=== PATIENT | male | born 1960 | race African-American/Black ===

== ENCOUNTER → 2020-01-12 | Emergency (ER) | payer MEDICAID, OTHER ==
[~2020-01-12] VITALS: Ht 172.7 cm; Wt 79.4 kg
[~2020-01-12] MED LIST: IOHEXOL 300 MG/ML 100ML BOTTLE IJ ONE
[2020-01-12 11:11] LABS: Basophils # (auto) 0.1 10 ^3/uL (0-0.2); Eosinophils # (auto) 0.1 10 ^3/uL (0-0.8); Eosinophils % (auto) 0.8 % (0.0-7.0); Hematocrit 43.1 % (41.0-53.0); Hemoglobin 14.2 g/dL (13.5-17.5); Lymphocytes # (auto) 1.3 10 ^3/uL (0.4-5.4); Lymphocytes % (auto) 16.9 % (10.0-50.0); Mean Corpuscular Hemoglobin 31.4 pg (28.0-32.0); Mean Corpuscular Volume 95.1 fL (80.0-100.0); Monocytes % (auto) 13.2 % (0.0-12.0); Neutrophils # (auto) 5.3 10 ^3/uL (1.6-8.6); Neutrophils % (auto) 68.1 % (37.0-80.0); Platelet Count (auto) 146 10^3/uL (140-450); Red Blood Cells 4.53 10^6/uL (4.5-5.90); Red Cell Distribution Width 14.1 % (11.8-14.3); White Blood Cell 7.7 10^3/uL (4.4-10.8)
[2020-01-12 11:25] LABS: Albumin 3.7 g/dL (3.4-5.0); Calcium 8.7 mg/dL (8.5-10.1); Potassium 3.8 mmol/L (3.5-5.1)
[2020-01-12 11:28] LABS: BUN/Creatinine Ratio 11.9; Bilirubin, Total 1.5 mg/dL (0.2-1.0); Total Protein 7.8 g/dL (6.4-8.2)
[2020-01-12 14:09] VITALS: BP 124/75
== END | disposition home or self-care (01) ==
LOC: ER 10:06
DX: R59.1 Generalized enlarged lymph nodes (principal); M54.2 Cervicalgia
CPT/HCPCS: 36415; 70491; 71260; 80053; 85025; 99285; Q9967

== ENCOUNTER 2024-10-04 07:45 | Inpatient (IN) | payer MEDICAID ==
[~2024-10-04] VITALS: Ht 172.7 cm; Wt 95.0 kg
[2024-10-04] VITALS (8 sets, daily range): BP systolic 113–146; BP diastolic 67–87; PULSE 64–78; RESP 12–17; TEMP 98.4–98.7; O2SAT 98–99
[~2024-10-04 07:45] MED LIST changes: +ATOR20TA50 PO; -IOHEXOL 300 MG/ML 100ML BOTTLE IJ ONE
[2024-10-04] MEDS ORDERED: KETAMINE 50mg/ML 1ml syringe ONE (08:40)
[2024-10-04] MEDS ORDERED: MEPERIDINE HCL (25 MG/ML) 1ML VIAL ONE (08:40)
[2024-10-04] MEDS ORDERED: PROPOFOL 10 MG/ML 20 ML IV ONE (08:40)
[2024-10-04] MEDS ORDERED: BUPIVACAINE/DEXTROSE MPF 0.75% 2 ML AMP IT ONE (08:40)
[2024-10-04] MEDS ORDERED: MIDAZOLAM HCL 2MG/2ML 2ml VIAL (1mg/ml) ONE (08:40)
[2024-10-04] MEDS ORDERED: LIDOCAINE 1% INJ PF 5ML AMP ONE (08:40)
[2024-10-04] MEDS ORDERED: fentaNYL CITRATE 100 MCG/2 ML VL ONE (08:40)
[2024-10-04] MEDS ORDERED: SODIUM CHLORIDE LOCK 10 ML ONE (08:40)
[2024-10-04] MEDS: TRANEXAMIC ACID 20 ML ONE (09:31)
[2024-10-04] MEDS: ROPIVACAINE 0.5% (5MG/ML) 20ML AMPULE IJ ONE (09:31)
[2024-10-04] MEDS: VANCOMYCIN HCL 1000 MG VL ONE (09:32)
[2024-10-04] MEDS: TETRACAINE 1% INJ 2 ML VIAL IJ ONE (09:35)
[2024-10-04] MEDS: ATORVASTATIN 20 MG TAB PO SCH (10:00)
[2024-10-04] MEDS: ceFAZolin 2 GM/D5W100ml 100 ML IV ONE (10:14)
[2024-10-04] MEDS: CEFEPIME 1GM/ 50ML 50 ML IV ONE (10:33)
[2024-10-04] MEDS ORDERED: MORPHINE SULF PF 5 MG/10 ML VIAL ONE (11:01)
[2024-10-04] MEDS: KETOROLAC TROMETH 30 MG/ML 1ML VIAL ONE ×2 (11:01→11:37)
[2024-10-04] MEDS ORDERED: oxyCODONE HCL 5MG TAB PO PRN (11:30)
[2024-10-04] MEDS: MORPHINE SULF PF 5 MG/10 ML VIAL ONE (11:37)
[2024-10-04] MEDS: BUPIVACAINE 0.25% INJ 50ML VIAL ONE (11:37)
--- NOTE | 2024-10-04 12:07 | DVH ---
CLINICAL INDICATION: TOTAL HIP ARTHROPLASTY TECHNIQUE: 1 radiographic views of the pelvis were obtained. Comparison: None FINDINGS/IMPRESSION: Status post left hip arthroplasty.
--- NOTE | 2024-10-04 12:18 | DVHOP2 ---
Operative Report - 2 Report Details Date: 10/04/24 Preop Diagnosis: Left hip degenerative arthritis Postop Diagnosis: Left hip degenerative arthritis Surgeon: Collin Miramontes MD [employer] Professor: Dianna JEAN Anesthesiologist: Trent Anesthesia: General Drains: Ashli closed wound suction Implant: DonJoy origin stem size 13 standard offset, 0 neck length, 36 ceramic head, flat polyethylene liner, 52 acetabular shell Consent: The patient was informed of the risks and benefits of the procedure. These include but are not limited to complications of anesthesia, postoperative infection, incomplete relief of symptoms, recurrence of symptoms, damage to blood vessels, nerves and tendons, deep venous thrombosis, pulmonary embolism and possible need for repeat surgery in the future. Complications: None Estimated Blood Loss: 200 cc Fluids: See anesthesia record Findings: Osteophytes at the femoral head and acetabulum, denuded cartilage with eburnated bone, limited range of motion hip Indications for Surgery: Left hip degenerative arthritis with severe pain and functional impairment despite nonoperative management Name of Procedure Performed Left total hip arthroplasty Procedure Details Procedure Details: The patient was brought to the operating room and given spinal anesthetic which did not take so he was given general anesthetic. The patient was positioned lateral decubitus with the operative side up, stabilized with hip positioners. Axillary roll applied and lower extremities well-padded. Preop patient received IV Ancef, cefepime and IV tranexamic acid. Surgical timeout was performed verifying patient, laterality and procedure. The hip and lower extremity were prepped and draped in sterile fashion. Incision was made over the greater trochanter. Subcutaneous dissection and hemostasis were performed with Bovie and aqua mantis. I identified the fascia which was incised with Bovie and Charnley retractor inserted. I identified the gluteus medius that was split at the junction of its anterior and middle thirds with Bovie then incised off the anterior greater trochanter. I incised the anterior gluteus minimus which was elevated off the capsule. I elevated the reflected head of the rectus. I then performed anterior capsulectomy with Bovie. I extended capsular incision posterior medially and superior laterally. The head was dislocated. Femoral neck cut was made with saw and head removed. Head diameter was calipered on the back table. I adjusted retractors to expose the acetabulum. I circumferentially removed labral tissue with Bovie. I removed foveal tissue with Bovie, curette and rongeur. I then began reaming sequentially paying attention to inclination and version as I went. I trialed which was stable so acetabular implant was brought into the field and tapped into the acetabulum with good fixation achieved. I then brought up the flat liner which was spun to make sure there was no soft tissue entrapment then tapped in and stability verified. I then brought my attention to the proximal femur. The leg was placed in the sterile bag anteriorly. I cleaned up soft tissue at the greater trochanter shoulder with Bovie. I then used a rongeur to clip the lateral neck. I then used a box osteotome, canal finder and lateralizing rasp. I sequentially broached to size 13. I revised the femoral neck cut with calcar planer. I trialed with a [0] neck length and [36] head which was stable. Intraoperative AP pelvis x-ray was obtained to verify length, offset and implant size. The hip was dislocated. Neck and head trial removed. Broach was removed. I tapped in the femoral implant with good fixation achieved. I cleaned and dried the Auguste taper and tapped on the ceramic head. The hip was again reduced and tested for stability which was good. I irrigated with xperience. [I injected soft tissue with local anesthetic which consisted of 40 cc of 0.25% Marcaine with epinephrine, 30 mg Toradol, 10 mL with Duramorph consisting of 5 mg.] I placed a 2 grams of vancomycin in the deep and superficial wound. I repaired the minimus and medius to the anterior greater trochanter with #[5] FiberWire in running fashion . I oversewed the repair with 0 Vicryl. I repaired the fascia with #1 Ethibond interrupted [id number]. Deep subcutaneous tissue was closed with 0 Vicryl. Superficial subcutaneous tissue was closed with 2-0 Vicryl. The skin was closed with octavio. I then applied the Ashli closed wound suction. Patient tolerated the procedure well and was brought to the recovery room in stable condition. Condition Stable Disposition Still a Patient COLLIN MIRAMONTES MD Oct 04, 2024 12:18
[2024-10-04] MEDS ORDERED: ONDANSETRON HCL 4 MG/2 ML VIAL IV PRN (12:30)
[2024-10-04] MEDS ORDERED: HYDROmorphone HCL 2 MG/ML VL/or syr IV PRN ×2 (13:00)
[2024-10-04] MEDS ORDERED: fentaNYL CITRATE 100 MCG/2 ML VL IV PRN (13:00)
[2024-10-04] MEDS: METOCLOPRAMIDE HCL 5MG/ml INJ 2ml VIAL IV ONE (13:00)
[2024-10-04] MEDS ORDERED: NALOXONE HCL 0.4 MG/ML VIAL IV PRN (13:00)
[2024-10-04] MEDS ORDERED: diphenhdrAMINE HCL 50 MG/1 ML VL IV PRN (13:00)
[2024-10-04] MEDS ORDERED: MORPHINE SULFATE INJ 2 MG/ml SYRG IV PRN (13:00)
[2024-10-04] MEDS: HYDROmorphone HCL 2 MG/ML VL/or syr ONE (13:05)
[2024-10-04] MEDS: HYDROmorphone HCL 2 MG/ML VL/or syr IV PRN (13:07)
--- NOTE | 2024-10-04 13:07 | DVH ---
CLINICAL INDICATION: postop TECHNIQUE: 1 radiographic views of the pelvis were obtained. Comparison: None FINDINGS/IMPRESSION: Postsurgical changes from left hip arthroplasty. Severe osteoarthrosis of the right femoroacetabular joint.
[2024-10-04] MEDS: ACETAMINOPHEN IV 100 ML IV ONE (13:21)
[2024-10-04] MEDS: ACETAMINOPHEN IV 1000 MG/100ML (10MG/ML) IV ONE (13:25)
[2024-10-04] MEDS ORDERED: LIDOCAINE W/ EPINEPHRINE 2% INJ 20ML VIAL ONE (13:58)
[2024-10-04] MEDS: KETOROLAC TROMETH 30 MG/ML 1ML VIAL IV ONE (14:40)
[2024-10-04] MEDS: SODIUM CHLORIDE 0.9% 1,000 ML IV SCH (17:48)
[2024-10-04] MEDS: ceFAZolin 2 GM/D5W50ml 50 ML IV SCH (17:49)
[2024-10-04] MEDS: ACETAMINOPHEN 325 MG TAB PO SCH (18:00)
[2024-10-04] MEDS: KETOROLAC TROMETH 30 MG/ML 1ML VIAL IV SCH (18:00)
[2024-10-04] MEDS: PREGABALIN 25 MG CAP PO SCH (22:08)
[2024-10-05] VITALS (20 sets, daily range): BP systolic 111–128; BP diastolic 62–73; PULSE 68–98; RESP 14–20; TEMP 97.9–99.5; O2SAT 93–99
[2024-10-05 06:43] LABS: Basophils # (auto) 0 10 ^3/uL (0-0.2); Basophils % (auto) 0.1 % (0.0-2.0); Eosinophils # (auto) 0 10 ^3/uL (0-0.8); Eosinophils % (auto) 0.1 % (0.0-7.0); Hematocrit 29.1 % (41.0-53.0); Hemoglobin 9.9 g/dL (13.5-17.5); Lymphocytes # (auto) 1.8 10 ^3/uL (0.4-5.4); Lymphocytes % (auto) 26.3 % (10.0-50.0); Mean Corpuscular Hemoglobin 33.9 pg (28.0-32.0); Mean Corpuscular Volume 99.9 fL (80.0-100.0); Monocytes # (auto) 0.6 10 ^3/uL (0-1.3); Monocytes % (auto) 8.8 % (0.0-12.0); Neutrophils # (auto) 4.6 10 ^3/uL (1.6-8.6); Neutrophils % (auto) 64.7 % (37.0-80.0); Platelet Count (auto) 122 10^3/uL (140-450); Red Blood Cells 2.91 10^6/uL (4.5-5.90); Red Cell Distribution Width 13.6 % (11.8-14.3)
[2024-10-05 06:59] LABS: Anion Gap 7 (5-15); Calcium 8.8 mg/dL (8.7-10.4); Carbon Dioxide 24 mmol/L (20-31); Chloride 107 mmol/L (98-107); Potassium 3.9 mmol/L (3.5-5.1); Sodium 138 mmol/L (136-145)
[2024-10-05 07:05] LABS: Blood Urea Nitrogen 16 mg/dL (9-23)
[2024-10-05 07:07] LABS: Glucose 151 mg/dL (74-106)
[2024-10-05] MEDS: APIXABAN 2.5 MG TAB PO SCH (09:55)
--- NOTE | 2024-10-05 12:51 | DVHDS2 ---
Discharge Summary Date of Admission Oct 04, 2024 at 11:28 Date of Discharge: Oct 05, 2024 Labs/Diagnostic Data: Laboratory Results Test 10/05/24 06:02 White Blood Count 7.0 10^3/uL (4.4-10.8) Red Blood Count 2.91 10^6/uL (4.5-5.90) Hemoglobin 9.9 g/dL (13.5-17.5) Hematocrit 29.1 % (41.0-53.0) Mean Corpuscular Volume 99.9 fL (80.0-100.0) Mean Corpuscular Hemoglobin 33.9 pg (28.0-32.0) Mean Corpuscular Hemoglobin Concent 34.0 g/dL (32.0-36.0) Red Cell Distribution Width 13.6 % (11.8-14.3) Platelet Count 122 10^3/uL (140-450) Mean Platelet Volume 9.4 fL (6.9-10.8) Neutrophils (%) (Auto) 64.7 % (37.0-80.0) Lymphocytes (%) (Auto) 26.3 % (10.0-50.0) Monocytes (%) (Auto) 8.8 % (0.0-12.0) Eosinophils (%) (Auto) 0.1 % (0.0-7.0) Basophils (%) (Auto) 0.1 % (0.0-2.0) Neutrophils # (Auto) 4.6 10 ^3/uL (1.6-8.6) Lymphocytes # (Auto) 1.8 10 ^3/uL (0.4-5.4) Monocytes # (Auto) 0.6 10 ^3/uL (0-1.3) Eosinophils # (Auto) 0 10 ^3/uL (0-0.8) Basophils # (Auto) 0 10 ^3/uL (0-0.2) Nucleated Red Blood Cells 0.0 % Sodium Level 138 mmol/L (136-145) Potassium Level 3.9 mmol/L (3.5-5.1) Chloride Level 107 mmol/L (98-107) Carbon Dioxide Level 24 mmol/L (20-31) Anion Gap 7 (5-15) Blood Urea Nitrogen 16 mg/dL (9-23) Creatinine 0.94 mg/dL (0.700-1.30) Glomerular Filtration Rate Calc 91 mL/min (>90) BUN/Creatinine Ratio 17.0 (10.0-20.0) Serum Glucose 151 mg/dL (74-106) Calcium Level 8.8 mg/dL (8.7-10.4) Other Laboratory Tests 10/05/24 06:02 Brief Hx & Hospital Course: The patient was brought to the hospital yesterday to undergo a left total hip arthroplasty, he tolerated the procedure well without complications and was kept overnight for postoperative observation. He has remained medically stable throughout his stay and denied any overnight events and reports some postoperative hip pain that is being well managed with the help of pain medication. Patient reports that he was also able to get up and walk with the help of physical therapy and his walker and was able to get around the nurses station and back to his bed with some postoperative hip pain. Patient is otherwise feeling well denying any other complaint or concern during my evaluation and would like to go home. Condition at Discharge: Stable Final Diagnosis/Problems List Left hip degenerative arthritis Discharge Disposition: Home Discharge Instruct/Medications Diet: Regular Activity: See Comment Activity comment: Patient to remain weight-bearing as tolerated with the assistance of a walker Follow Up/Referral: I instructed the patient to follow up with our office in 10-14 days for his 1st postoperative evaluation Medications: Rx sent via our outpatient EMR system Discharge Statement: "Patient was advised to return to the ER or call 911 if any headaches, dizziness, shortness of breath, chest pain, abdominal pain, bleeding, fevers, or worsening of medical condition. Patient was counseled about treatment plan, medications, possible side effects, patientverbalized understanding. All questions were answered to the best of my ability. This discharge took greater then 30 minutes in planning, reviewing documentation, counseling the patient, and discussing with other team members." ASSESSMENT ASSESSMENT Assessment Left hip degenerative arthritis CESAR BARTH Oct 05, 2024 12:51
--- NOTE | 2024-10-05 12:53 | DVHPN2 ---
Progress Note - Dictate Date Seen: Oct 05, 2024 Medical Necessity Reason Pt with a Central, PICC or Fol: No Subjective Patient was lying comfortably in bed during my evaluation and reports some postoperative hip pain that is being well managed with the help of pain medication. Patient reports that he was also able to get up and walk with the help of physical therapy and his walker and was able to get down the vickers to the nurse's station and back to his bed with some pain. Patient is otherwise feeling well denying any other complaint or concern during my evaluation and would like to go home. vital signs Vital Sign Date Time Temp Pulse Resp B/P (MAP) Pulse Ox O2 Delivery O2 Flow Rate FiO2 10/05/24 10:52 72 18 95 10/05/24 09:00 98.8 114/65 (81) 98.8 10/04/24 20:00 Nasal Cannula* 2 28 Total Intake and Output 10/04/24 10/04/24 10/05/24 15:00 23:00 07:00 Intake Total 250 ml 50 ml 350 ml Output Total 725 ml Balance 250 ml 50 ml -375 ml medications Current Medications Medications Dose Ordered Sig/Dm Route Start Time Stop Time Status Last Admin Dose Admin Atorvastatin Calcium 20 mg DAILY PO 10/04/24 10:00 10/05/24 09:55 20 MG Pregabalin 50 mg BID PO 10/04/24 22:00 10/05/24 09:55 50 MG Apixaban 2.5 mg BID PO 10/05/24 10:00 11/09/24 09:59 10/05/24 09:55 2.5 MG Sodium Chloride 1,000 ml @ 125 mls/hr Q8H IV 10/04/24 11:30 10/05/24 05:09 125 MLS/HR Acetaminophen 650 mg Q6HP PO 10/04/24 18:00 10/05/24 06:52 650 MG Ketorolac Tromethamine 15 mg Q6HR IV 10/04/24 18:00 10/09/24 17:59 10/05/24 06:52 15 MG Ondansetron HCl 4 mg Q4HP PRN IV 10/04/24 12:30 Oxycodone HCl 5 mg Q4HP PRN PO 10/04/24 11:30 Oxycodone HCl 10 mg Q4HP PRN PO 10/04/24 11:30 Diphenhydramine HCl 25 mg Q4HP PRN IV 10/04/24 13:00 objective A&O x4 in no acute distress Hip range of motion grossly limited with pain on movement Ashli dressing clean, dry, intact, and maintaining suction No distal edema or calf tenderness to palpation Neurovascularly intact with cap refill less than 2 seconds laboratory and microbiology Laboratory Tests 10/05/24 06:02 Test 10/05/24 06:02 Range/Units Serum Glucose 151 H 74-106 mg/dL Assessment/Plan Patient to be discharged home and advised to remain weight-bearing as tolerated with the assistance of a walker. I also instructed the patient to maintain his dressings clean, dry, intact, and maintaining suction and to call our office if he has any questions or concerns. Patient was instructed to follow up with our office in 10-14 days for his 1st postoperative evaluation. Rx sent via our outpatient EMR system. He understood and agreed. Plan discussed with: Patient CESAR BARTH Oct 05, 2024 12:53
[2024-10-05] MEDS: oxyCODONE HCL 5MG TAB PO PRN (19:15)
== END 2024-10-05 19:00 | disposition home or self-care (01) | DRG 324 ==
LOC: SUR 07:45 → OVERFLOW 11:28 → TELE 12:39 → TELE-EAST 15:15
PROVIDERS: ADMIT Orthopaedic Surgery; ATTEND Orthopaedic Surgery
PROC: 0SRB04Z Replacement of Left Hip Joint with Ceramic on Polyethylene Synthetic Substitute, Open Approach (ICD-10-PCS; principal; 2024-10-04 10:14)
DX: M16.12 Unilateral primary osteoarthritis, left hip (principal); Z79.899 Other long term (current) drug therapy
CPT/HCPCS: 36415; 72170; 73501; 80048; 85025; 86850; 86900; 86901; 97110; 97116; 97163; 97530; G0378; J0131; J1885; J2250; J2704; J3490

== ENCOUNTER 2025-05-30 06:04 | Inpatient (IN) | payer MEDICAID ==
[2025-05-28 10:51] LABS: Urine Protein, UAD Negative (Negative)
[2025-05-28 10:59] LABS: INR 1.03 (0.9-1.15); Partial Thromboplastin Time 28.5 SEC (24.5-34.5); Prothrombin Time 10.9 sec (9.3-11.8)
[2025-05-28 11:16] LABS: Alanine Aminotransferase 15 U/L (7-40); Albumin 4.5 g/dL (3.2-4.8); Alkaline Phosphatase 64 U/L (46-116); Anion Gap 9 (5-15); BUN/Creatinine Ratio 9.3 (10.0-20.0); Calcium 9.1 mg/dL (8.7-10.4); Carbon Dioxide 26 mmol/L (20-31); Chloride 105 mmol/L (98-107); Glucose 93 mg/dL (74-106); Potassium 4.3 mmol/L (3.5-5.1); Sodium 140 mmol/L (136-145); Total Protein 7.6 g/dL (5.7-8.2)
[2025-05-28 11:17] LABS: Bilirubin, Total 1.1 mg/dL (0.2-1.0)
[2025-05-28 11:19] LABS: Blood Urea Nitrogen 9 mg/dL (9-23)
[2025-05-28 11:21] LABS: Hemoglobin 13.6 g/dL (13.5-17.5); Nucleated Red Blood Cells % 0.1 %
[2025-05-28 11:23] LABS: Hematocrit 39.0 % (41.0-53.0); Mean Corpuscular Hemoglobin 35.0 pg (28.0-32.0); Mean Corpuscular Volume 100.5 fL (80.0-100.0)
[2025-05-30] VITALS (10 sets, daily range): BP systolic 118–138; BP diastolic 68–92; PULSE 75–102; RESP 12–20; TEMP 97.4–97.8; O2SAT 93–99
[~2025-05-30] VITALS: Ht 172.7 cm; Wt 92.9 kg
[~2025-05-30 06:04] MED LIST changes: +CHOL200064 PO
[2025-05-30] MEDS: ROPIVACAINE 0.5% (5MG/ML) 20ML AMPULE IJ ONE (06:46)
[2025-05-30] MEDS ORDERED: HYDROmorphone HCL 2 MG/ML VL/or syr IV PRN (07:15)
[2025-05-30] MEDS ORDERED: ONDANSETRON HCL 4 MG/2 ML VIAL IV PRN (07:15)
[2025-05-30] MEDS ORDERED: METOCLOPRAMIDE HCL 5MG/ml INJ 2ml VIAL ONE (07:17)
[2025-05-30] MEDS ORDERED: fentaNYL CITRATE 100 MCG/2 ML VL ONE (07:17)
[2025-05-30] MEDS ORDERED: ONDANSETRON HCL 4 MG/2 ML VIAL ONE (07:17)
[2025-05-30] MEDS ORDERED: ROCURONIUM 10MG/ML 10ML VIAL IV ONE (07:17)
[2025-05-30] MEDS ORDERED: PROPOFOL 10 MG/ML 20 ML IV ONE (07:17)
[2025-05-30] MEDS ORDERED: LIDOCAINE 2% (LOCAL ANESTH.) PF 5ml SDV ONE (07:17)
[2025-05-30] MEDS ORDERED: MIDAZOLAM HCL 2MG/2ML 2ml VIAL (1mg/ml) ONE (07:17)
[2025-05-30] MEDS ORDERED: MORPHINE SULF PF 5 MG/10 ML VIAL ONE (07:19)
[2025-05-30] MEDS ORDERED: KETOROLAC TROMETH 30 MG/ML 1ML VIAL ONE (07:19)
[2025-05-30] MEDS: ceFAZolin 2 GM/D5W50ml 50 ML IV ONE (07:25)
[2025-05-30] MEDS: CEFEPIME 1GM/50ML 50 ML IV ONE (07:30)
[2025-05-30] MEDS: TRANEXAMIC ACID 20 ML ONE (07:35)
[2025-05-30] MEDS ORDERED: HYDROmorphone HCL 2 MG/ML VL/or syr ONE (07:50)
[2025-05-30] MEDS ORDERED: SODIUM CHLORIDE LOCK 10 ML ONE (07:51)
[2025-05-30] MEDS ORDERED: hydrALAZINE HCL 20 MG/ML VL ONE (07:51)
[2025-05-30] MEDS: VANCOMYCIN HCL 1000 MG VL ONE (08:37)
[2025-05-30] MEDS ORDERED: PHENYLEPHRINE HCL 10 MG/ML VL ONE (08:46)
[2025-05-30] MEDS ORDERED: LIDOCAINE W/ EPINEPHRINE 1% 20ML VIAL ONE (08:46)
[2025-05-30] MEDS ORDERED: SUGAMMADEX 200mg/2ml Vial (100MG/ML) IV ONE (08:53)
--- NOTE | 2025-05-30 09:00 | DVH ---
CLINICAL INDICATION: INTRA OP TECHNIQUE: XY R HIP 1V XRAY Comparison: XR HIP RIGHT 2-3 VIEW on DOS: 02/01/25, XY PELVIS AP on DOS: 10/04/24, XY L HIP 1V XRAY on DOS: 10/04/24 FINDINGS/IMPRESSION: : Intraoperative right hip arthroplasty
--- NOTE | 2025-05-30 09:18 | DVHOP2 ---
Operative Report - 2 Report Details Date: 05/30/25 Preop Diagnosis: Right hip degenerative arthritis Postop Diagnosis: Right hip degenerative arthritis Surgeon: Collin Miramontes MD [employer] Operator: Dianna JEAN Anesthesiologist: Rober Anesthesia: General, Regional Drains: Ashli closed wound suction Implant: Jonah floresous stem size six, plus four neck length, 36 ceramic head, 52 G7 Maren cup, flat polyethylene liner Consent: The patient was informed of the risks and benefits of the procedure. These include but are not limited to complications of anesthesia, postoperative infection, incomplete relief of symptoms, recurrence of symptoms, damage to blood vessels, nerves and tendons, deep venous thrombosis, pulmonary embolism and possible need for repeat surgery in the future. Complications: None Estimated Blood Loss: 150 cc Fluids: See anesthesia record Findings: Denuded cartilage with eburnated bone, osteophytes Indications for Surgery: Right hip degenerative arthritis with severe pain and functional impairment despite nonoperative management Name of Procedure Performed Right total hip arthroplasty Procedure Details Procedure Details: The patient was brought to the operating room and given general anesthetic. The patient was positioned lateral decubitus with the operative side up, stabilized with hip positioners. Axillary roll applied and lower extremities well-padded. Preop patient received IV Ancef, cefepime and IV tranexamic acid. Surgical timeout was performed verifying patient, laterality and procedure. The hip and lower extremity were prepped and draped in sterile fashion. Incision was made over the greater trochanter. Subcutaneous dissection and hemostasis were performed with Bovie and aqua mantis. I identified the fascia which was incised with Bovie and Charnley retractor inserted. I identified the gluteus medius that was split at the junction of its anterior and middle thirds with Bovie then incised off the anterior greater trochanter. I incised the anterior gluteus minimus which was elevated off the capsule. I elevated the reflected head of the rectus. I then performed anterior capsulectomy with Bovie. I extended capsular incision posterior medially and superior laterally. The head was dislocated. Femoral neck cut was made with saw and head removed. Head diameter was calipered on the back table. I adjusted retractors to expose the acetabulum. I circumferentially removed labral tissue with Bovie. I removed foveal tissue with Bovie, curette and rongeur. I then began reaming sequentially paying attention to inclination and version as I went. I trialed which was stable so acetabular implant was brought into the field and tapped into the acetabulum with good fixation achieved. I used osteotome and rongeur to remove extensive acetabular osteophytes. I inserted the central cap for the acetabular cup. I then brought up the flat liner which was spun to make sure there was no soft tissue entrapment then tapped in and stability verified. I then brought my attention to the proximal femur. The leg was placed in the sterile bag anteriorly. I cleaned up soft tissue at the greater trochanter shoulder with Bovie. I then used a rongeur to clip the lateral neck. I then used a box osteotome, canal finder and lateralizing rasp. I sequentially broached to size six. I trialed with a [0 and plus four] neck length and [36] head which was stable at the plus four length. Intraoperative AP pelvis x-ray was obtained to verify length, offset and implant size. The hip was dislocated. Neck and head trial removed. Broach was removed. I tapped in the femoral implant with good fixation achieved. I again trialed with a 0 and plus four decided to use the plus four. I cleaned and dried the Auguste taper and tapped on the ceramic head. The hip was again reduced and tested for stability which was good. I irrigated with bacisurge. I placed a 2 grams of vancomycin in the deep and superficial wound. I repaired the minimus and medius to the anterior greater trochanter with #[5] FiberWire in running fashion . I oversewed the repair with 0 Vicryl. I repaired the fascia with #1 Ethibond interrupted [id number]. Deep subcutaneous tissue was closed with 0 Vicryl. Superficial subcutaneous tissue was closed with 2-0 Vicryl. The skin was closed with octavio. I then applied the Ashli closed wound suction. Patient tolerated the procedure well and was brought to the recovery room in stable condition. Condition Stable Disposition Still a Patient COLLIN MIRAMONTES MD May 30, 2025 09:18
--- NOTE | 2025-05-30 10:06 | DVH ---
CLINICAL INDICATION: postop TECHNIQUE: 1 radiographic views of the pelvis were obtained. Comparison: XY PELVIS AP on DOS: 10/04/24 FINDINGS/IMPRESSION: There is no evidence of acute fracture or dislocation. Status post bilateral hip arthroplasties.
[2025-05-30] MEDS: ACETAMINOPHEN IV 1000 MG/100ML (10MG/ML) IV ONE (10:29)
[2025-05-30] MEDS: BUPIVACAINE 0.25% INJ 50ML VIAL ONE ×2 (10:33→10:34)
[2025-05-30] MEDS: ACETAMINOPHEN 325 MG TAB PO SCH (10:40)
[2025-05-30] MEDS: PREGABALIN 25 MG CAP PO SCH (10:41)
[2025-05-30] MEDS: SODIUM CHLORIDE 0.9% 1,000 ML IV SCH (10:41)
[2025-05-30] MEDS: ONDANSETRON HCL 4 MG/2 ML VIAL IV PRN (10:41)
[2025-05-30] MEDS: KETOROLAC TROMETH 30 MG/ML 1ML VIAL IV SCH (10:42)
[2025-05-30] MEDS: ceFAZolin 2 GM/D5W50ml 50 ML IV SCH (14:18)
[2025-05-31 01:00] VITALS: BP 112/71; PULSE 89; RESP 20; TEMP 98.2; O2SAT 97
[2025-05-31 05:00] VITALS: BP 124/62; PULSE 80; RESP 20; TEMP 98.1; O2SAT 99
[2025-05-31 07:17] LABS: Potassium 4.0 mmol/L (3.5-5.1); Sodium 140 mmol/L (136-145)
[2025-05-31 07:18] LABS: Anion Gap 10 (5-15); Carbon Dioxide 23 mmol/L (20-31)
[2025-05-31 07:24] LABS: BUN/Creatinine Ratio 11.8 (10.0-20.0); Blood Urea Nitrogen 10 mg/dL (9-23); Glucose 96 mg/dL (74-106); Nucleated Red Blood Cells % 0.0 %
[2025-05-31 07:26] LABS: Hematocrit 30.1 % (41.0-53.0); Hemoglobin 10.7 g/dL (13.5-17.5); Mean Corpuscular Hemoglobin 35.9 pg (28.0-32.0); Mean Corpuscular Volume 100.6 fL (80.0-100.0)
[2025-05-31 07:43] LABS: Calcium 7.9 mg/dL (8.7-10.4); Chloride 107 mmol/L (98-107)
[2025-05-31 09:00] VITALS: BP 118/69; PULSE 69; RESP 18; TEMP 98.7; O2SAT 100
[2025-05-31] MEDS: APIXABAN 2.5 MG TAB PO SCH (09:41)
[2025-05-31 13:30] VITALS: BP 124/78; PULSE 84; RESP 18; TEMP 98.9; O2SAT 99
[2025-05-31 16:59] VITALS: BP 143/68; PULSE 86; RESP 20; TEMP 99.4; O2SAT 96
--- NOTE | 2025-05-31 17:38 | DVHDS2 ---
Discharge Summary Date of Admission May 30, 2025 at 09:21 Date of Discharge: May 31, 2025 Labs/Diagnostic Data: Laboratory Results Test 05/31/25 05:12 05/28/25 10:30 White Blood Count 7.1 10^3/uL (4.4-10.8) Red Blood Count 2.99 10^6/uL (4.5-5.90) Hemoglobin 10.7 g/dL (13.5-17.5) Hematocrit 30.1 % (41.0-53.0) Mean Corpuscular Volume 100.6 fL (80.0-100.0) Mean Corpuscular Hemoglobin 35.9 pg (28.0-32.0) Mean Corpuscular Hemoglobin Concent 35.7 g/dL (32.0-36.0) Red Cell Distribution Width 14.1 % (11.8-14.3) Platelet Count 169 10^3/uL (140-450) Mean Platelet Volume 8.6 fL (6.9-10.8) Neutrophils (%) (Auto) 65.9 % (37.0-80.0) Lymphocytes (%) (Auto) 20.7 % (10.0-50.0) Monocytes (%) (Auto) 13.2 % (0.0-12.0) Eosinophils (%) (Auto) 0.1 % (0.0-7.0) Basophils (%) (Auto) 0.1 % (0.0-2.0) Neutrophils # (Auto) 4.7 10 ^3/uL (1.6-8.6) Lymphocytes # (Auto) 1.5 10 ^3/uL (0.4-5.4) Monocytes # (Auto) 0.9 10 ^3/uL (0-1.3) Eosinophils # (Auto) 0 10 ^3/uL (0-0.8) Basophils # (Auto) 0 10 ^3/uL (0-0.2) Nucleated Red Blood Cells 0.0 % Sodium Level 140 mmol/L (136-145) Potassium Level 4.0 mmol/L (3.5-5.1) Chloride Level 107 mmol/L (98-107) Carbon Dioxide Level 23 mmol/L (20-31) Anion Gap 10 (5-15) Blood Urea Nitrogen 10 mg/dL (9-23) Creatinine 0.85 mg/dL (0.700-1.30) Glomerular Filtration Rate Calc 97 mL/min (>90) BUN/Creatinine Ratio 11.8 (10.0-20.0) Serum Glucose 96 mg/dL (74-106) Calcium Level 7.9 mg/dL (8.7-10.4) Prothrombin Time 10.9 sec (9.3-11.8) Prothrombin Time INR 1.03 (0.9-1.15) Activated Partial Thromboplast Time 28.5 SEC (24.5-34.5) Urine Color Yellow (Yellow) Urine Clarity Clear (Clear) Urine pH 5.5 (5.0-9.0) Urine Specific Emmons 1.030 (1.001-1.035) Urine Protein Negative (Negative) Urine Ketones Negative (Negative) Urine Blood Negative /uL (Negative) Urine Nitrite Negative (Negative) Urine Bilirubin Negative (Negative) Urine Urobilinogen Normal mg/dL (Negative) Urine Leukocyte Esterase Negative /uL (Negative) Urine RBC 1 /hpf (0 - 3) Urine Microscopic WBC 1 /HPF (0-3) Urine Squamous Epithelial Cells Few /hpf (<5) Urine Bacteria None seen /hpf (None Seen) Urine Mucus Few (None Seen) Urine Glucose Normal mg/dL (Normal) Total Bilirubin 1.1 mg/dL (0.2-1.0) Aspartate Amino Transferase (AST) 19 U/L (13-40) Alanine Aminotransferase (ALT) 15 U/L (7-40) Alkaline Phosphatase 64 U/L (46-116) Total Protein 7.6 g/dL (5.7-8.2) Albumin 4.5 g/dL (3.2-4.8) Other Laboratory Tests 05/31/25 05:12 Brief Hx & Hospital Course: Patient was brought to the hospital yesterday to undergo a right total hip arthroplasty. He tolerated the procedure well without complications and was kept overnight for postoperative observation. Patient reports that his pain is being well managed with the help of pain medication reports that he was able to get up and walk with the help of physical therapy and his walker yesterday as well as today and was even able to get up a couple of steps without too much pain. Patient is otherwise feeling well and would like to go home. Condition at Discharge: Stable Final Diagnosis/Problems List Right hip degenerative arthritis Discharge Disposition: Home Discharge Instruct/Medications Diet: Regular Activity: See Comment Activity comment: Weight-bearing as tolerated with the assistance of a walker Follow Up/Referral: Patient instructed to follow up with our office in 10-14 days for his 1st postoperative evaluation. Medications: Rx sent via our outpatient EMR system Scheduled Atorvastatin Calcium (Atorvastatin Calcium), 1 TAB PO DAILY, (Reported) Cholecalciferol (D3 2000), 2,000 UNIT PO DAILY, (Reported) Discharge Statement: "Patient was advised to return to the ER or call 911 if any headaches, dizziness, shortness of breath, chest pain, abdominal pain, bleeding, fevers, or worsening of medical condition. Patient was counseled about treatment plan, medications, possible side effects, patientverbalized understanding. All questions were answered to the best of my ability. This discharge took greater then 30 minutes in planning, reviewing documentation, counseling the patient, and discussing with other team members." ASSESSMENT ASSESSMENT Assessment Right hip degenerative arthritis CESAR BARTH May 31, 2025 17:38
--- NOTE | 2025-05-31 17:40 | DVHPN2 ---
Progress Note - Dictate Date Seen: May 31, 2025 Medical Necessity Reason Pt with a Central, PICC or Fol: No Subjective Patient was sitting up comfortably in bed during my evaluation reports some postoperative hip pain that is being well managed with the help of pain medication. Patient reports that he was able to get up and walk with the help of physical therapy and his walker yesterday as well as today and was even able to get up a couple of steps with only some mild pain. Patient is otherwise feeling well denying any other complaints or concerns during my evaluation and would like to go home. vital signs Vital Sign Date Time Temp Pulse Resp B/P (MAP) Pulse Ox O2 Delivery O2 Flow Rate FiO2 05/31/25 16:59 99.4 86 20 143/68 (93) 96 99.4 05/31/25 08:00 Nasal Cannula* 2 28 Total Intake and Output 05/30/25 05/30/25 05/31/25 15:00 23:00 07:00 Intake Total 120 ml 675 ml 820 ml Output Total 300 ml 4 ml Balance 120 ml 375 ml 816 ml medications Current Medications Medications Dose Ordered Sig/Dm Route Start Time Stop Time Status Last Admin Dose Admin Pregabalin 50 mg BID PO 05/30/25 10:00 05/31/25 09:41 50 MG Apixaban 2.5 mg BID PO 05/31/25 10:00 07/05/25 09:59 05/31/25 09:41 2.5 MG Sodium Chloride 1,000 ml @ 125 mls/hr Q8H IV 05/30/25 11:30 05/31/25 11:53 125 MLS/HR Acetaminophen 650 mg Q6HP PO 05/30/25 12:00 05/31/25 11:52 650 MG Ketorolac Tromethamine 15 mg Q6HR IV 05/30/25 12:00 06/04/25 11:59 05/31/25 11:52 15 MG Ondansetron HCl 4 mg Q4HP PRN IV 05/30/25 09:30 05/30/25 10:41 4 MG Oxycodone HCl 5 mg Q4HP PRN PO 05/30/25 11:30 05/31/25 15:25 5 MG Oxycodone HCl 10 mg Q4HP PRN PO 05/30/25 11:30 objective A&O x4 in no acute distress Hip range of motion grossly limited with pain on movement Tong dressing clean, dry, intact, but not maintaining suction Applied new tong dressing that was clean, dry, intact and maintaining suction. No distal edema or calf tenderness to palpation Neurovascularly intact with cap refill less than 2 seconds laboratory and microbiology Laboratory Tests 05/31/25 05:12 Test 05/31/25 05:12 Range/Units Serum Glucose 96 74-106 mg/dL Assessment/Plan Patient to be discharged home and advised him to remain weight-bearing as tolerated with the assistance of a walker. I instructed the patient to follow up with our office in 10-14 days for his 1st postoperative evaluation and to call our office if he has any further questions or concerns. I instructed the patient to maintain his dressings clean, dry, intact, and maintaining suction. Rx sent via our outpatient EMR system. Patient understood and agreed. Plan discussed with: Patient CESAR BARTH May 31, 2025 17:40
== END 2025-05-31 20:35 | disposition home or self-care (01) | DRG 324 ==
LOC: SUR 06:04 → OVERFLOW 09:21 → WEST WING 11:18
PROVIDERS: ADMIT Orthopaedic Surgery; ATTEND Orthopaedic Surgery
PROC: 0SR90JZ Replacement of Right Hip Joint with Synthetic Substitute, Open Approach (ICD-10-PCS; principal; 2025-05-30 07:20)
DX: M16.11 Unilateral primary osteoarthritis, right hip (principal)
CPT/HCPCS: 36415; 72170; 73501; 80048; 80053; 81001; 85025; 85610; 85730; 86850; 86900; 86901; 97116; 97163; 97530; G0378; J0131; J1100; J1885; J2003; J2250; J2405; J2704; J3490